=== PATIENT | female | born 2000 | race Caucasian/White ===

== ENCOUNTER 2024-12-21 21:54 | Emergency (ER) | payer BC, SELFPAY ==
[2024-12-21 21:56] VITALS: BP 151/105
--- NOTE | 2024-12-21 23:29 | ED.GENMED ---
History of Present Illness
General
Chief Complaint: Suicidal Ideation
Source: patient and family (Mother who is at bedside)
Exam Limitations: none
Time Seen by Provider: 12/21/24 23:12
Nursing documentation reviewed up to this point in time: agreed with
History of Present Illness
History of Present Illness:
This is a 24-year-old female who has a longstanding history of anxiety, depression. Prior history of acute suicidal ideation requiring psychiatric hospitalization at [facility] during 10th grade of high school.
This was her only inpatient hospitalization and had been doing well, following with a online therapist weekly.
More recently however over the past month she notes increase in anxiety, depression symptoms, increased stress. She admits that she has not been following with her therapist over the past month and she has had several day history of suicidal
thoughts with plans to overdose on her medications.
She did reach out to friends as well as her mother and presents to the ED voluntarily.
She denies taking overdose of medicines, denies taking [id number] medications.
She does have a medical marijuana card and uses marijuana occasionally. She denies other drug use, denies alcohol use.
Last menstrual period approximately a month ago; patient states she is due for her menses soon. Denies risk of .
She has been evaluated by [facility] whom recommend inpatient psychiatric treatment.
Patient agreeable with inpatient treatment.
Past History
Past History
ED Past Medical History: Psychiatric (Anxiety/depression/suicidal ideations requiring brief inpatient psychiatric stay at [facility] 10th grade of high school.) and Other (Irritable bowel syndrome)
ED Past Surgical History: None
Social History
Tobacco: Non-smoker
Alcohol: None
Drug: Marijuana
Personal: Single
Living: with family
Employment: Student
Family History
Family History: Other (Noncontributory)
Phy Exam
Physical Exam
Physical Exam:
GENERAL: 24-year-old overweight female appears her stated age. Awake and alert, very mildly anxious but easily communicative. Normal speech pattern. Accompanied by her mother.
EYE: anicteric
NECK: Supple, nontender, no meningismus, no significant adenopathy.
ENT: oral mucosa is moist. No rhinorrhea.
CARDIAC: Regular rate and rhythm. no murmur.
LUNGS: Clear breath sounds bilaterally, no acute respiratory distress, no wheezes/rales/rhonchi
ABDOMEN: Soft, nondistended, without focal tenderness
NEUROLOGICAL: Alert and oriented x3, no focal neuro deficits. Gait is mcgee and steady.
SKIN: Warm and dry, normal color, skin intact. No rash.
MUSCULOSKELETAL: No C/C/E. peripheral pulses are full and equal b/l. No palpable tenderness.
PSYCH: Admits to ongoing stress/anxiety with suicidal thoughts over the past several days with plan to overdose on her medications.
Course
Orders/Labs/Results
Orders:
Orders
12/21/24 22:03
1:1 Observation - Suicide/ Violent Behavior As Directed
Crisis Consult Urgent
Reason for Consult: +SI plan to overdose.
12/21/24 23:24
Urine Drug Abuse Screen Urgent
Date Specimen was Collected: 12/21/24
Time Specimen was Collected: 23:30
12/21/24 23:25
Test Result ONCE
12/21/24 23:52
Alcohol Urgent
Basic Metabolic Panel Urgent
Complete Blood Count/With Diff Urgent
HCG, Serum Qualitative Screen Urgent
12/22/24 01:36
Lamotrigine [Lamictal] 200 mg PO NOW STA
Prazosin HCl [Minipress] 1 mg PO NOW STA
12/22/24 01:41
Desvenlafaxine Succinate [Pristiq] 75 mg PO NOW STA
Abnormal Lab Results
12/21/24 12/22/24
23:52 00:30
Absolute Lymphs (auto) 3.7 H 10^3/uL
(1.2-3.4)
Calcium 10.5 H mg/dl
(8.4-10.2)
U Marijuana (THC) Screen Positive H
(Negative)
12/21/24 23:52
12/21/24 23:52
Vital Signs
Initial and Last Documented VS:
Initial Vital Signs
Temp Pulse Resp BP Pulse Ox
98 F 87 16 151/105 100
12/21/24 21:56 12/21/24 21:56 12/21/24 21:56 12/21/24 21:56 12/21/24 21:56
Last Documented Vital Signs
Temp Pulse Resp BP Pulse Ox
98 F 89 16 147/83 99
12/21/24 21:56 12/22/24 02:49 12/22/24 02:49 12/22/24 02:49 12/22/24 02:49
MDM/Problems Addressed
Differential Diagnosis Includes:
Significant concern for suicidal thoughts with plan to overdose.
Mother accompanying and seems very supportive. Patient was also accompanied by several girlfriends who also seemed quite supportive.
[facility] recommends inpatient treatment and thus far patient is agreeable to inpatient psychiatric treatment.
Will check routine screening labs.
No history of significant past medical history/medical issues.
Chronic conditions affecting care: Psychiatric illness
Acute Exacerbation and/or Progression of Chronic Illness: Psychiatric illness
*Pulse Oximetry
Patient hypoxic: no
*Critical Care Note
Total Time (30-74mins, 75-104mins- exclusive of procedures): Not Applicable
ED Attending Note
-
Portions of this chart may have been created with voice recognition software.� Occasional wrong word or��sound alike� substitutions may have occurred due to the inherent limitations of voice recognition software.
Discharge Plan
Departure
Patient Disposition: Psych Facility
Date of Disposition: 12/21/24
Time of Disposition: 23:30
Condition: Good
Discharge Problem:
Depression with suicidal ideation
Prescriptions:
No Action
lamotrigine [Lamictal] 200 mg Tablet
200 mg PO DAILY
prazosin 1 mg Capsule
1 mg PO HS
bupropion HCl [Wellbutrin SR] 200 mg Tablet Sustained-Release 12 Hr
200 mg PO DAILY
desvenlafaxine 50 mg Tablet Extended Release 24 Hr
75 mg PO DAILY
Referrals:
Tesha King MD [Family Provider] -
Interventions
Interventions:
*Risk Screen - Suicide Last Done: 12/21/24 21:56
*General Assessment Last Done: 12/21/24 22:11
*Neglect/Abuse Screening Last Done: 12/21/24 21:56
ED- Fall Risk Assessment Last Done: 12/21/24 22:11
*ED COVID-19 Vaccine History Last Done: 12/21/24 22:11
ED-Psychological Assessment Last Done: 12/21/24 22:24
Discharge Date and Time
Print Language: MAORI
[2024-12-22 00:12] LABS: % Basophils 0.3 % (0-2); % Immature Granulocytes 0.4 % (0-0.5); % Monocytes 4.9 % (1.7-9.3); % Neutrophils 57.4 % (42.2-75.2); Absolute Lymphocytes 3.7 10^3/uL (1.2-3.4); Absolute Monocytes 0.5 10^3/uL (0.1-0.6); Absolute Neutrophils 5.8 10^3/uL (1.4-6.5); Hematocrit 40.9 % (37.0-47.0); Hemoglobin 14.2 g/dL (12.0-16.0); Mean Corp Hgb Conc. 34.7 g/dL (33.0-37.0); Mean Corpuscular Hgb 29.5 pg (27.0-31.0); Mean Platelet Volume 8.6 fL (7.4-10.4); Nucleated Red Blood Cells % 0 %; Platelet Count 281 10^3/uL (130-400); Red Blood Cell Count 4.81 10^6/uL (4.20-5.40); Red Cell Dist. Width 11.9 % (11.5-14.5); White Blood Cell Count 10.1 10^3/uL (4.8-10.8)
[2024-12-22 00:14] LABS: HCG, Serum Qualitative Screen Negative
[2024-12-22 00:20] LABS: Alcohol None Detected; Blood Urea Nitrogen 14 mg/dl (7-17); Calcium 10.5 mg/dl (8.4-10.2); Carbon Dioxide 26 mmol/L (22-30); Chloride 102 mmol/L (98-107); Glucose 90 mg/dl (70-99); Sodium 137 mmol/L (135-145); eGFR > 60.00
[2024-12-22 00:53] LABS: Amphetamines Negative (Negative); Barbiturates Negative (Negative); Benzodiazepines Negative (Negative); Buprenorphine Negative (Negative); Cocaine Negative (Negative); Marijuana Positive (Negative); Methadone Negative (Negative); Methamphetamines Negative (Negative); Opiates Negative (Negative); Phencyclidine Negative (Negative); Tricyclic Antidepressants Negative (Negative)
[2024-12-22 02:12] VITALS: BMI 46.3
[2024-12-22] MEDS: LAMICTAL 200 MG PO (02:48)
[2024-12-22] MEDS: MINIPRESS 1 MG PO (02:48)
[2024-12-22 02:49] VITALS: BP 147/83
[2024-12-22] MEDS: PRISTIQ 75 MG PO (02:49)
[2024-12-22] MEDS: WELLBUTRIN SR (12 hour sustained release) 200 MG PO (08:22)
[2024-12-22 08:26] VITALS: BP 140/82
== END 2024-12-22 10:37 ==
LOC: EMR 21:54
PROVIDERS: EMERGENCY PHYSICIAN Emergency Medicine; FAMILY PHYSICIAN Family Medicine
DX: F32.A Depression, unspecified (principal); R45.851 Suicidal ideations; F41.9 Anxiety disorder, unspecified; Z79.899 Other long term (current) drug therapy
CPT/HCPCS: 99285; 80048; 80306; 82077; 84703; 85025